=== PATIENT | male | born 1955 | race Caucasian/White ===

== ENCOUNTER 2020-09-24 11:18 | Inpatient (IN) | payer BC, MEDICARE ==
[~2020-09-24] VITALS: Ht 175.3 cm; Wt 92.1 kg
[~2020-09-24 11:18] MED LIST: CILOSTAZOL100 MG PO; CLOPIDOGREL75 MG PO; COUMADIN6 MG PO; JANTOVEN10 MG PO; LACTINEX TABLET1 EA PO; LEVAQUIN750 MG PO; LIPITOR40 MG PO; LOPRESSOR 25 MG25 MG PO; LOPRESSOR50 MG PO; PROTONIX 40 MG40 M1 PO; SINGULAIR10 MG PO; TOPROL XL50 MG PO; [UNRECOGNIZED DRUG - REMARK]
[2020-09-25] MEDS ORDERED: WARFARIN SODIUM10 MG PO (19:21)
[2020-09-25] MEDS ORDERED: SUPREP BOWEL P354 ML PO (19:21)
[2020-09-25 20:25] LABS: RED BLOOD COUNT 5.17 M/UL (4.20-5.50); WHITE BLOOD COUNT 7.5 K/UL (4.5-11.0)
[2020-09-25 21:40] LABS: BUN/CREATININE RATIO 14 (0-10)
[2020-09-26 06:42] LABS: HEMOGLOBIN 13.5 gm/dl (14.0-17.5); WHITE BLOOD COUNT 7.4 K/UL (4.5-11.0)
[2020-09-26 07:32] LABS: BUN/CREATININE RATIO 13 (0-10)
[2020-09-26] MEDS ORDERED: LOPRESSOR 50 MG50 MG PO (08:00)
[2020-09-26] MEDS ORDERED: MULTI-VITAMIN1 EACH PO (08:01)
[2020-09-26] MEDS ORDERED: FLONASE 0.05% N16 GM (08:02)
[2020-09-26] MEDS ORDERED: PROAIR HFA8.5 GM INH (08:03)
[2020-09-26] MEDS ORDERED: XYZAL5 MG PO (08:04)
[2020-09-26] MEDS ORDERED: LIPITOR20 MG PO (10:23)
[2020-09-28 04:19] LABS: BUN/CREATININE RATIO 14 (0-10)
[2020-09-28 04:22] LABS: HEMOGLOBIN 14.4 gm/dl (14.0-17.5)
[2020-09-28 04:31] LABS: RED BLOOD COUNT 5.54 M/UL (4.20-5.50); WHITE BLOOD COUNT 9.5 K/UL (4.5-11.0)
[2020-09-30 06:01] LABS: RED BLOOD COUNT 5.86 M/UL (4.20-5.50); WHITE BLOOD COUNT 9.1 K/UL (4.5-11.0)
[2020-09-30 06:25] LABS: BUN/CREATININE RATIO 12 (0-10)
[2020-10-01 03:46] LABS: HEMOGLOBIN 14.2 gm/dl (14.0-17.5); WHITE BLOOD COUNT 8.9 K/UL (4.5-11.0)
[2020-10-01 03:50] LABS: RED BLOOD COUNT 5.18 M/UL (4.20-5.50)
[2020-10-01 04:16] LABS: BUN/CREATININE RATIO 15 (0-10)
--- NOTE | 2020-10-01 04:19 | NUR ---
NOTIFIED DR GODINEZ THAT PTT 132. HELD HEPARIN AND WILL RECHECK PTT IN 2 HOURS PER PROTOCOL. RECIEVED NO NEW ORDERS. WILL CONTINUE TO MONITOR.
[2020-10-02 03:23] LABS: HEMOGLOBIN 14.8 gm/dl (14.0-17.5); RED BLOOD COUNT 5.42 M/UL (4.20-5.50); WHITE BLOOD COUNT 8.4 K/UL (4.5-11.0)
[2020-10-02 03:40] LABS: BUN/CREATININE RATIO 12 (0-10)
[2020-10-03 02:37] LABS: HEMOGLOBIN 14.8 gm/dl (14.0-17.5); RED BLOOD COUNT 5.31 M/UL (4.20-5.50); WHITE BLOOD COUNT 7.5 K/UL (4.5-11.0)
[2020-10-03 02:55] LABS: BUN/CREATININE RATIO 11 (0-10)
[2020-10-04 02:36] LABS: HEMOGLOBIN 14.6 gm/dl (14.0-17.5); RED BLOOD COUNT 5.26 M/UL (4.20-5.50)
[2020-10-04] MEDS ORDERED: COLACE 100MG C100 MG PO (08:55)
== END 2020-10-04 11:59 | disposition home or self-care (01) | DRG 381 ==
LOC: MED SURG 4 09-25 18:42 → CDU 09-25 18:42 → MED SURG 4 09-25 19:25
PROVIDERS: Hospitalist; Internal Medicine; Internal Medicine Gastroenterology; ADMIT Internal Medicine
PROC: 0DBK8ZX Excision of Ascending Colon, Via Natural or Artificial Opening Endoscopic, Diagnostic (ICD-10-PCS; 2020-09-30)
PROC: 0DB48ZX Excision of Esophagogastric Junction, Via Natural or Artificial Opening Endoscopic, Diagnostic (ICD-10-PCS; principal; 2020-09-30 11:30)
PROC: 0DB58ZX Excision of Esophagus, Via Natural or Artificial Opening Endoscopic, Diagnostic (ICD-10-PCS; 2020-09-30 11:30)
DX: K22.70 Barrett's esophagus without dysplasia (principal); I48.20 Chronic atrial fibrillation, unspecified; R79.1 Abnormal coagulation profile; K44.9 Diaphragmatic hernia without obstruction or gangrene; K64.8 Other hemorrhoids; Z20.822 Contact with and (suspected) exposure to COVID-19; M10.9 Gout, unspecified; I10 Essential (primary) hypertension; K64.4 Residual hemorrhoidal skin tags; J45.909 Unspecified asthma, uncomplicated; K60.2 Anal fissure, unspecified; K59.00 Constipation, unspecified; I25.10 Atherosclerotic heart disease of native coronary artery without angina pectoris; K21.9 Gastro-esophageal reflux disease without esophagitis; R73.03 Prediabetes; E87.6 Hypokalemia; K63.5 Polyp of colon; Z79.01 Long term (current) use of anticoagulants; Z95.5 Presence of coronary angioplasty implant and graft; Z86.16 Personal history of COVID-19; Z95.2 Presence of prosthetic heart valve; Z82.49 Family history of ischemic heart disease and other diseases of the circulatory system; Z80.42 Family history of malignant neoplasm of prostate; Z88.6 Allergy status to analgesic agent
CPT/HCPCS: 36415; 80048; 80053; 83735; 85025; 85027; 85610; 85730; 94664; 94760; J0290; J1580; J1644; J2001; J2704; J7040; U0002

== ENCOUNTER → 2020-10-07 | Outpatient (CLI) | payer BC, MEDICARE ==
[~2020-10-07] MED LIST changes: +COLACE 100MG C100 MG PO; +FLONASE 0.05% N16 GM; +LIPITOR20 MG PO; +LOPRESSOR 50 MG50 MG PO; +MULTI-VITAMIN1 EACH PO; +PROAIR HFA8.5 GM INH; +SUPREP BOWEL P354 ML PO; +WARFARIN SODIUM10 MG PO; +XYZAL5 MG PO
== END ==
LOC: LAB 10:02
DX: Z51.81 Encounter for therapeutic drug level monitoring (principal); Z79.01 Long term (current) use of anticoagulants; R94.4 Abnormal results of kidney function studies
CPT/HCPCS: 36415; 82565; 85610

== ENCOUNTER → 2020-11-08 | Outpatient (CLI) | payer BC, MEDICARE | LOC: NM 09:45 | DX: I25.118 Atherosclerotic heart disease of native coronary artery with other forms of angina pectoris (principal); I44.0 Atrioventricular block, first degree | CPT/HCPCS: 78452; 93017; A9502; J2785 ==

== ENCOUNTER → 2021-05-06 | Outpatient (CLI) | payer BC, OTHER | LOC: LAB 15:01 → OPSV 15:01 → EDSTATUS 15:08 | DX: Z51.81 Encounter for therapeutic drug level monitoring (principal); Z79.01 Long term (current) use of anticoagulants; Z95.2 Presence of prosthetic heart valve | CPT/HCPCS: 85610; 96372; J1650 ==

== ENCOUNTER → 2021-05-06 | Outpatient (CLI) | payer BC, OTHER | LOC: LAB 10:54 | DX: Z79.01 Long term (current) use of anticoagulants (principal) | CPT/HCPCS: 36415; 85610 ==

== ENCOUNTER → 2021-05-07 | Outpatient (CLI) | payer BC, OTHER | LOC: OPSV 08:00 | DX: Z95.2 Presence of prosthetic heart valve (principal) | CPT/HCPCS: 96372; J1650 ==

== ENCOUNTER → 2021-05-08 | Outpatient (CLI) | payer BC, OTHER | LOC: EROP 19:36 | DX: Z51.81 Encounter for therapeutic drug level monitoring (principal); Z79.01 Long term (current) use of anticoagulants; Z95.2 Presence of prosthetic heart valve | CPT/HCPCS: 96372; J1650 ==

== ENCOUNTER → 2021-05-08 | Outpatient (CLI) | payer BC, OTHER | LOC: OPSV 08:03 | DX: Z95.2 Presence of prosthetic heart valve (principal) | CPT/HCPCS: 96372 ==

== ENCOUNTER → 2021-05-09 | Outpatient (CLI) | payer BC, OTHER | LOC: OPSV 07:55 | DX: Z79.899 Other long term (current) drug therapy (principal) | CPT/HCPCS: 96372; J1650 ==